=== PATIENT | female | born 1995 | race Caucasian/White ===

== ENCOUNTER 2019-11-13 10:47 | Emergency (ER) | payer OTHER ==
[2019-11-13 12:02] LABS: Urine Blood NEGATIVE (NEG); Urine Glucose NEGATIVE (NEG); Urine Protein NEGATIVE (NEG); Urine Specific Gravity 1.015 (1.005-1.030); Urine pH 7.5 (5.0-7.0)
[2019-11-13 12:19] LABS: Urine Bacteria 20-50 /HPF (<20); Urine Culture Reflex Order NOT NEEDED; Urine RBC <5 /HPF (NONE SEEN)
[2019-11-13] MEDS ORDERED: CEFTRIAXONE/SWI 1gm 0 GM/0 ML SYR ONE (13:51)
[2019-11-13] MEDS ORDERED: KETOROLAC 30 MG/ML INJ ONE (13:51)
[2019-11-13] MEDS ORDERED: NA CHLORIDE 0.9% 1,000 ML ONE (13:51)
[2019-11-13 14:17] LABS: Basophils % 0.4 % (0-1.3); Hematocrit 44.1 % (36.0-45.0); Lymphocytes % 25.3 % (15.3-44.8); MPV 8.9 fL (7.6-11.3); RBC Red Blood Cell Count 5.08 M/uL (3.86-4.86)
[2019-11-13] MEDS ORDERED: CEFTRIAXONE/SWI 1gm 1 GM/10 ML SYR ONE (14:34)
[2019-11-13 14:44] LABS: Albumin 3.7 g/dL (3.4-5.0); Bilirubin Total 0.3 mg/dL (0.2-1.0); Potassium 3.7 mmol/L (3.5-5.1)
--- NOTE | 2019-11-13 15:21 | RAD REPORT ---
EXAM DESCRIPTION: CT - Abdomen Pelvis W Contrast - 11/13/2019 2:55 pm CLINICAL HISTORY: Abdominal pain COMPARISON: none. TECHNIQUE: Computed axial tomography of the abdomen pelvis was obtained. 100 cc Isovue-300 was admin istered intravenously. Oral contrast was not requested which limits evaluation of bowel. All CT scans are performed using dose optimization technique as appropriate and may include automated exposure control or mA/KV adjustment according to patient size. FINDINGS: The liver, spleen, pancreas, adrenal and kidneys appear unremarkable. There is no evidence of diverticulitis. Normal appendix Many curvilinear structures are present throughout the stomach measuring several centimeters. IMPRESSION: Many curvilinear structures are present throughout the stomach. Presumably these represe nt ingested contents. Parasitic infection is another consideration but probably less likely. If clini jorge l indicated a gastric aspirate could be obtained
--- NOTE | 2019-11-13 15:43 | EDPHYS ---
Physician Documentation [facility] Name: Mariam Perez Age: 24 yrs Sex: Female : 1995 Arrival Date: 11/13/2019 Time: 10:49 Bed 24 Private MD: ED Physician Otf Esquivel HPI: 11/12 13:37 This 24 yrs old Female presents to ER via Ambulatory with complaints of alanna Abdominal Pain. 13:37 The patient presents with abdominal pain in the upper abdomen, in the left upper alanna quadrant, in the left lower quadrant. Onset: The symptoms/episode began/occurred 3 day(s) ago. The symptoms do not radiate. Associated signs and symptoms: none. The symptoms are described as crampy, dull, intermittent. Modifying factors: The symptoms are alleviated by nothing, remaining still, the symptoms are aggravated by movement, nothing. Severity of pain: At its worst the pain was moderate in the emergency department the pain is unchanged. The patient has not experienced similar symptoms in the past. 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 - Social history:: Smoking status: Patient denies any tobacco usage or history of. - Family history:: not pertinent. ROS: 13:37 Constitutional: Negative for fever, chills, and weight loss, Eyes: Negative for injury, alanna pain, redness, and discharge, ENT: Negative for injury, pain, and discharge, Neck: Negative for injury, pain, and swelling, Cardiovascular: Negative for chest pain, palpitations, and edema, Respiratory: Negative for shortness of breath, cough, wheezing, and pleuritic chest pain, Back: Negative for injury and pain, : Negative for injury, bleeding, discharge, and swelling, MS/Extremity: Negative for injury and deformity, Skin: Negative for injury, rash, and discoloration, Neuro: Negative for headache, weakness, numbness, tingling, and seizure, Psych: Negative for depression, anxiety, suicide ideation, homicidal ideation, and hallucinations, Allergy/Immunology: Negative for hives, rash, and allergies, Endocrine: Negative for neck swelling, polydipsia, polyuria, polyphagia, and marked weight changes, Hematologic/Lymphatic: Negative for swollen nodes, abnormal bleeding, and unusual bruising. 13:37 Abdomen/GI: Positive for abdominal pain, of the left upper quadrant and left lower quadrant. Exam: 13:37 Constitutional: This is a well developed, well nourished patient who is awake, alert, alanna and in no acute distress. Head/Face: Normocephalic, atraumatic. Eyes: Pupils equal round and reactive to light, extra-ocular motions intact. Lids and lashes normal. Conjunctiva and sclera are non-icteric and not injected. Cornea within normal limits. Periorbital areas with no swelling, redness, or edema. ENT: Nares patent. No nasal discharge, no septal abnormalities noted. Tympanic membranes are normal and external auditory canals are clear. Oropharynx with no redness, swelling, or masses, exudates, or evidence of obstruction, uvula midline. Mucous membranes moist. Neck: Trachea midline, no thyromegaly or masses palpated, and no cervical lymphadenopathy. Supple, full range of motion without nuchal rigidity, or vertebral point tenderness. No Meningismus. Chest/axilla: Normal chest wall appearance and motion. Nontender with no deformity. No lesions are appreciated. Cardiovascular: Regular rate and rhythm with a normal S1 and S2. No gallops, murmurs, or rubs. Normal PMI, no JVD. No pulse deficits. Respiratory: Lungs have equal breath sounds bilaterally, clear to auscultation and percussion. No rales, rhonchi or wheezes noted. No increased work of breathing, no retractions or nasal flaring. Back: No spinal tenderness. No costovertebral tenderness. Full range of motion. Skin: Warm, dry with normal turgor. Normal color with no rashes, no lesions, and no evidence of cellulitis. MS/ Extremity: Pulses equal, no cyanosis. Neurovascular intact. Full, normal range of motion. Neuro: Awake and alert, GCS 15, oriented to person, place, time, and situation. Cranial nerves II-XII grossly intact. Motor strength 5/5 in all extremities. Sensory grossly intact. Cerebellar exam normal. Normal gait. Psych: Awake, alert, with orientation to person, place and time. Behavior, mood, and affect are within normal limits. 13:37 Abdomen/GI: Inspection: abdomen appears normal, Bowel sounds: normal, Palpation: mild abdominal tenderness, moderate abdominal tenderness, in the right upper quadrant, left upper quadrant and left lower quadrant, Liver: no appreciated palpable abnormalities, Hernia: not appreciated. Vital Signs: 11:29 BP 129 / 84; Pulse 84; Resp 16 S; Temp 98.4(TE); Pulse Ox 100% on R/A; Weight 65.77 kg ca1 (R); Height 5 ft. 3 in. (160.02 cm) (R); Pain 6/10; 11:29 Body Mass Index 25.69 (65.77 kg, 160.02 cm) ca1 MDM: 12:53 Patient medically screened. alanna 13:39 Data reviewed: vital signs, nurses notes, lab test result(s), radiologic studies, CT alanna scan. Data interpreted: child monitor: not applicable for this patient encounter. Pulse oximetry: on room air is 100 %. Test interpretation: by ED physician or midlevel provider:. Counseling: I had a detailed discussion with the patient and/or guardian regarding: the historical points, exam findings, and any diagnostic results supporting the discharge/admit diagnosis, lab results, radiology results. Medication response: Toradol partially relieved the patient's pain. 15:42 Differential diagnosis: appendicitis, bowel obstruction, cholecystitis, Cholelithiasis, alanna diverticulitis, Dysmenorrhea, gastritis, gastroesophageal reflux disease, GI Bleed, Mesenteric ischemia or infarction, non-specific abd pain, pancreatitis, Pyelonephritis, urinary tract infection. ED course: pt stable, all results explained, pt to fu dr weir, return if symptoms increase or persist, pt understands and will do so. 11/12 11:47 Order name: Urine Microscopic Only; Complete Time: 13:35 [facility] 11/12 11:47 Order name: Urine Culture [facility] 11/12 11:48 Order name: Urine Culture [facility] 11/12 11:49 Order name: Urine Dipstick--Ancillary (enter results) [facility] 11/12 11:49 Order name: Urine --Ancillary (enter results); Complete Time: 13:35 [facility] 11/12 11:50 Order name: Urine Dipstick-Ancillary; Complete Time: 13:35 [facility] 11/12 13:37 Order name: CBC with Diff; Complete Time: 14:32 [facility] 11/12 13:37 Order name: Comprehensive Metabolic Panel; Complete Time: 15:37 [facility] 11/12 13:37 Order name: Lipase; Complete Time: 15:37 [facility] 11/12 13:37 Order name: CT Abd/Pelvis - IV Contrast Only; Complete Time: 15:37 [facility] Administered Medications: 15:06 Drug: NS 0.9% 1000 ml Route: IV; Rate: 1 bolus; Site: right antecubital; 15:06 Drug: TORadol 30 mg Route: IVP; Site: right antecubital; 15:06 Drug: Rocephin 1 grams Route: IV; Rate: per protocol; Site: right antecubital; Disposition: 11/13/19 15:42 Discharged to Home. Impression: Abdominal tenderness, Functional dyspepsia, Urinary tract infection, site not specified. - Condition is Stable. - Discharge Instructions: Abdominal Pain, Adult, Urinary Tract Infection, Adult, Urinary Tract Infection, Adult, [id number], Abdominal Pain, Adult, [id number]-[id number], Indigestion, Vivr-[id number]. - Prescriptions for Pepcid 20 mg Oral Tablet - take 1 tablet by ORAL route every 12 hours for 10 days; 20 tablet. Zofran 4 mg Oral Tablet - take 1 tablet by ORAL route every 12 hours As needed; 20 tablet. Keflex 500 mg Oral Capsule - take 1 capsule by ORAL route every 8 hours for 7 days; 21 capsule. - Medication Reconciliation Form, Thank You Letter, Antibiotic Education, Prescription Opioid Use form. - Follow up: Private Physician; When: 2 - 3 days; Reason: Recheck today's complaints, Continuance of care, Re-evaluation by your physician. Follow up: Lenny Weir MD; When: 2 - 3 days; Reason: Recheck today's complaints, Continuance of care, Re-evaluation by your physician. - Problem is new. - Symptoms have improved. Signatures: Dispatcher [employer] Otf Enriquez MD MD cha Williams, Irene, RN RN iw Rocio Mendoza RN RN ca1 Corrections: (The following items were deleted from the chart) 15:44 15:42 11/13/2019 15:42 Discharged to Home. Impression: Abdominal tenderness; Functional alanna dyspepsia. Condition is Stable. Forms are Medication Reconciliation Form, Thank You Letter, Antibiotic Education, Prescription Opioid Use. Follow up: Private Physician; When: 2 - 3 days; Reason: Recheck today's complaints, Continuance of care, Re-evaluation by your physician. Follow up: Lenny Weir; When: 2 - 3 days; Reason: Recheck today's complaints, Continuance of care, Re-evaluation by your physician. Problem is new. Symptoms have improved. [facility] 16:23 15:44 11/13/2019 15:42 Discharged to Home. Impression: Abdominal tenderness; Functional iw dyspepsia; Urinary tract infection, site not specified. Condition is Stable. Discharge Instructions: Abdominal Pain, Adult, Abdominal Pain, Adult, [id number], Indigestion, Dddh-[id number]. Prescriptions for Pepcid 20 mg Oral Tablet - take 1 tablet by ORAL route every 12 hours for 10 days; 20 tablet, Zofran 4 mg Oral Tablet - take 1 tablet by ORAL route every 12 hours As needed; 20 tablet. and Forms are Medication Reconciliation Form, Thank You Letter, Antibiotic Education, Prescription Opioid Use. Follow up: Private Physician; When: 2 - 3 days; Reason: Recheck today's complaints, Continuance of care, Re-evaluation by your physician. Follow up: Lenny Weir; When: 2 - 3 days; Reason: Recheck today's complaints, Continuance of care, Re-evaluation by your physician. Problem is new. Symptoms have improved. [facility]
--- NOTE | 2019-11-13 15:43 | ER ---
Nurse's Notes [facility] Name: Mariam Perez Age: 24 yrs Sex: Female : 1995 Arrival Date: 11/13/2019 Time: 10:49 Bed 24 Private MD: Diagnosis: Abdominal tenderness;Functional dyspepsia;Urinary tract infection, site not specified Presentation: 11/12 11:29 Chief complaint: Patient states: Abdominal pain x 3 days. More on the LUQ, aggravated ca1 by walking and movement. Visited PCP this morning and advised to come to the ER. Denies N/V/Diarrhea. Coronavirus screen: Proceed with normal triage. Patient denies a cough. Patient denies shortness of breath or difficulty breathing. Patient denies measured and/or subjective temperature greater than 100.4F prior to today's visit. Patient denies travel on a cruise ship or to a country the [facility] currently lists as an affected area. Patient denies contact with known and/or suspected case of COVID-19. Ebola Screen: Patient negative for fever greater than or equal to 101.5 degrees Fahrenheit, and additional compatible Ebola Virus Disease symptoms Patient denies exposure to infectious person. Patient denies travel to an Ebola-affected area in the 21 days before illness onset. No symptoms or risks identified at this time. Initial Sepsis Screen: Does the patient meet any 2 criteria? No. Patient's initial sepsis screen is negative. Does the patient have a suspected source of infection? No. Patient's initial sepsis screen is negative. Risk Assessment: Do you want to hurt yourself or someone else? Patient reports no desire to harm self or others. Onset of symptoms was November 13, 2019. 11:29 Method Of Arrival: Ambulatory ca1 11:29 Acuity: TREASURE 3 ca1 Triage Assessment: 16:22 General: Appears in no apparent distress. Behavior is calm. 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 - Social history:: Smoking status: Patient denies any tobacco usage or history of. - Family history:: not pertinent. Screenin:22 Abuse screen: Denies threats or abuse. Denies injuries from another. Nutritional iw screening: No deficits noted. Tuberculosis screening: No symptoms or risk factors identified. Fall Risk None identified. Assessment: 14:00 General: Appears in no apparent distress. Pain: Complains of pain in left lower iw quadrant and left upper quadrant. Neuro: Level of Consciousness is awake, alert, obeys commands, Oriented to person, place, time, situation, Moves all extremities. Full function. Cardiovascular: Patient's skin is warm and dry. Respiratory: Respiratory effort is even, unlabored, Respiratory pattern is regular, symmetrical. GI: Bowel sounds present X 4 quads. Abd is soft X 4 quads Reports upper abdominal pain, Patient currently denies constipation, diarrhea, nausea, vomiting. : Denies burning with urination. Derm: Skin is intact, is healthy with good turgor. Musculoskeletal: Range of motion: intact in all extremities. Vital Signs: 11:29 BP 129 / 84; Pulse 84; Resp 16 S; Temp 98.4(TE); Pulse Ox 100% on R/A; Weight 65.77 kg ca1 (R); Height 5 ft. 3 in. (160.02 cm) (R); Pain 6/10; 11:29 Body Mass Index 25.69 (65.77 kg, 160.02 cm) ca1 ED Course: 10:49 Patient arrived in ED. as 11:31 Triage completed. ca1 11:33 Arm band placed on right wrist. ca1 12:53 Otf Esquivel MD is Attending Physician. alanna 12:56 Agnes Mazariegos RN is Primary Nurse. iw 14:00 Patient has correct armband on for positive identification. iw 14:00 Inserted saline lock: 22 gauge in right antecubital area, using aseptic technique. iw 14:55 CT Abd/Pelvis - IV Contrast Only In Process Unspecified. EDMS 15:41 Lenny Santos MD is Referral Physician. alanna 16:23 No provider procedures requiring assistance completed. IV discontinued, intact, iw bleeding controlled, No redness/swelling at site. Pressure dressing applied. Administered Medications: 15:06 Drug: NS 0.9% 1000 ml Route: IV; Rate: 1 bolus; Site: right antecubital; iw 15:06 Drug: TORadol 30 mg Route: IVP; Site: right antecubital; iw 15:06 Drug: Rocephin 1 grams Route: IV; Rate: per protocol; Site: right antecubital; iw Outcome: 15:42 Discharge ordered by MD. mondragon 16:23 Discharged to home ambulatory. iw 16:23 Condition: good 16:23 Discharge instructions given to patient, Instructed on discharge instructions, follow up and referral plans. Demonstrated understanding of instructions, follow-up care, medications, Prescriptions given X 3. 16:23 Patient left the ED. iw Signatures: Dispatcher [employer] EDOtf Bermudez MD MD cha Martinez, Amelia as Williams, Irene RN RN iw Rocio Mendoza RN RN ca1
== END 2019-11-13 16:23 | disposition home or self-care (01) ==
LOC: ER 10:47
DX: K30 Functional dyspepsia (principal); N39.0 Urinary tract infection, site not specified
CPT/HCPCS: 87088; 85025; 87086; 36415; 81025; 83690; 80053; 74177; 96375; 96374; 99284; Q9967; J0696; J7030; 81003; 81015